=== PATIENT | male | born 1970 | race Caucasian/White ===

== ENCOUNTER 2020-04-13 15:11 | Inpatient (IN) ==
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
[2020-04-13] MEDS ORDERED: NORMAL SALINE 1,000 ML IV ONE (15:33)
[2020-04-13 15:53] LABS: Hematocrit 39.2 % (42.0-52.0); Hemoglobin 13.5 gm/dL (13.5-18.0); Mean Cell Volume 87.9 fl (78-100); Mean Corpuscular Hemoglobin 30.3 pg (27-31); Mean Corpuscular Hgb Conc 34.4 g/dl (32-36); Mean Platelet Volume 10.1 fl (8-11.3); Neutrophil # 6.2 K/mm3 (1.3-6.0); Neutrophil % 71.8 % (42-75.0); Platelet Count 189 K/mm3 (150-450); Red Blood Count 4.46 M/mm3 (4.7-6.0); Red Cell Distribution Width 12.7 % (11.5-14.0); White Blood Count 8.6 K/mm3 (4.0-10.5)
[2020-04-13 16:05] LABS: ALT 62 U/L (19-67); AST 46 U/L (0-48); Albumin * 3.5 gm/dl (3.4-5.0); Alkaline Phosphatase * 215 U/L (50-170); Anion Gap 19.1 mmol/L (6.8-13.8); BUN/Creatinine Ratio 9.3 (9.0-21.6); Bilirubin, Total 0.8 mg/dL (0.0-1.1); Blood Urea Nitrogen 9 mg/dL (6-23); Ca. Corrected For Albumin 9.7 mg/dL (8.4-10.2); Calcium * 9.6 mg/dL (7.9-10.9); Carbon Dioxide 22.1 mmol/L (24-32.6); Chloride 93 mmol/L (97-106); Glucose * 116 mg/dL (70-110); Potassium 4.2 mmol/L (3.4-4.6); Salicylate 7.8 mg/dL (2.8-20.0); Sodium 130 mmol/L (132-142); Total Protein 8.1 gm/dL (6.2-8.2)
[2020-04-13 16:10] LABS: Urine Bilirubin 1 mg/dl (NEGATIVE); Urine Ketone Negative (NEGATIVE); Urine Protein Negative (NEGATIVE); Urine Specific Gravity 1.025 SP.GR. (1.005-1.030); Urine Urobilinogen Normal (NORMAL); Urine pH 5.5 pH (5.0-7.0)
[2020-04-13 16:24] LABS: Cocaine Ur Negative (NEGATIVE); Urine Barbiturate Negative (NEGATIVE); Urine Benzodiazepines Negative (NEGATIVE); Urine Opiates Negative (NEGATIVE); Urine PCP Negative (NEGATIVE); Urine THC Negative (NEGATIVE)
[2020-04-13 16:30] LABS: Urine Appearance Slightly Cloudy (CLEAR); Urine Blood 5 /ul (NEGATIVE); Urine Color Dark Yellow; Urine Nitrite Positive (NEGATIVE); Urine RBC TRACE /hpf (0-5); Urine WBC 25-50 /hpf (0-5)
[2020-04-13 16:31] LABS: Urine Bacteria 4+; Urine Hyaline Cast 0-5 /LPF
[2020-04-13] MEDS ORDERED: cefTRIAXone SODIUM 1,000 MG/100 ML BAG IV ONE (16:47)
[2020-04-13] MEDS: NICOTINE 21 MG PATC TD SCH (18:49)
[2020-04-13] MEDS ORDERED: LORazepam 2 MG/ML DISP.SYRIN IV ONE (18:54)
[2020-04-13] MEDS: LORazepam 1 MG TABLET PO SCH (21:45)
[2020-04-14] MEDS: LORazepam 1 MG TABLET PO SCH ×4 (04:35→21:49)
[2020-04-14] MEDS: CIPROFLOXACIN HCL 500 MG TABLET PO SCH ×2 (13:47→20:03)
[2020-04-14] MEDS: LISINOPRIL 10 MG TABLET PO SCH (13:48)
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
[2020-04-14] MEDS: NICOTINE 21 MG PATC TD SCH (19:44)
[2020-04-14] MEDS: TOPIRAMATE 50 MG TABLET PO SCH (20:04)
--- NOTE | 2020-04-14 23:40 | PN ---
Subjective - Date and Time Seen Date: 04/14/20 Time: 10:30 Subjective Narrative: Reports weak and not feeling well. CIWA has remained low with scheduled ativan oral. Urine cx growing gram neg susan. No fever, chills, or vomiting. reports nausea. Objective - Vitals Vitals: Last Vital Signs Temp 36.4 C 04/14/20 16:02 Pulse 90 04/14/20 16:02 Resp 16 04/14/20 16:02 BP 153/87 H 04/14/20 16:02 Pulse Ox 100 04/14/20 16:02 - Exam Constitutional: Present: Alert, Oriented x3, Cooperative ENT Exam: Present: hearing grossly normal Respiratory: Present: lungs clear, normal breath sounds, no respiratory distress Cardiovascular/Chest: Present: regular rate, rhythm, no edema, no murmur Abdomen: Present: Normal bowel sounds, soft, nontender, nondistended Skin Exam: Present: normal color, warm/dry, no cyanosis Assessment/Plan Plan Narrative: UTI, culture pending. Treated with cipro. Less confused today. Patient is not interested in alcohol treatment. Confusion may be UTI related but alcohol is likely contributing. If continues to improve, will discharge tomorrow. - Problems/Diagnosis (1) Altered mental status Problem: Acute Qualifiers: Altered mental status type: disorientation Qualified Code(s): R41.0 - Disorientation, unspecified (2) Urinary tract infection Problem: Acute Qualifiers: Urinary tract infection type: acute cystitis Hematuria presence: without hematuria Qualified Code(s): N30.00 - Acute cystitis without hematuria (3) Alcohol withdrawal syndrome with complication Problem: Acute (4) Alcohol abuse Problem: Chronic
[2020-04-15] MEDS: LORazepam 1 MG TABLET PO SCH ×4 (03:03→21:12)
[2020-04-15] MEDS: CIPROFLOXACIN HCL 500 MG TABLET PO SCH ×2 (09:17→21:12)
[2020-04-15] MEDS: LISINOPRIL 10 MG TABLET PO SCH (09:17)
[2020-04-15] MEDS: TOPIRAMATE 50 MG TABLET PO SCH ×2 (09:18→21:12)
[2020-04-15] MEDS: NICOTINE 21 MG PATC TD SCH (19:03)
--- NOTE | 2020-04-15 22:58 | PN ---
Subjective - Date and Time Seen Date: 04/15/20 Time: 09:45 Subjective Narrative: Patient is confused and believes he is headed to work. Has no focal concerns. Patient is unsteady on his feet. No fever, chills, nausea, or vomiting. Objective - Vitals Vitals: Last Vital Signs Temp 36.3 C 04/15/20 22:09 Pulse 78 04/15/20 22:09 Resp 20 04/15/20 22:09 BP 139/81 04/15/20 22:09 Pulse Ox 100 04/15/20 22:09 - Exam Constitutional: Present: Alert, No distress. Absent: Oriented x3 Respiratory: Present: lungs clear, normal breath sounds Cardiovascular/Chest: Present: regular rate, rhythm, no edema Abdomen: Present: Normal bowel sounds, soft, nontender, nondistended Skin Exam: Present: normal color, warm/dry, no cyanosis Assessment/Plan Plan Narrative: Patient is delirious and confused and unsteady on his feet. He is unsafe for discharge. Symptoms secondary to Ecoli UTI vs alcohol withdrawal/damage. Continue antibiotics, continue ativan for CIWA. - Problems/Diagnosis (1) Altered mental status Problem: Acute Qualifiers: Altered mental status type: disorientation Qualified Code(s): R41.0 - Disorientation, unspecified (2) Urinary tract infection Problem: Acute Qualifiers: Urinary tract infection type: acute cystitis Hematuria presence: without hematuria Qualified Code(s): N30.00 - Acute cystitis without hematuria (3) Alcohol withdrawal syndrome with complication Problem: Acute (4) Alcohol abuse Problem: Chronic
[2020-04-16] MEDS: LORazepam 1 MG TABLET PO SCH ×3 (03:51→16:42)
[2020-04-16] MEDS: LISINOPRIL 10 MG TABLET PO SCH (09:28)
[2020-04-16] MEDS: TOPIRAMATE 50 MG TABLET PO SCH ×2 (09:28→20:17)
[2020-04-16] MEDS: CIPROFLOXACIN HCL 500 MG TABLET PO SCH ×2 (09:28→20:17)
--- NOTE | 2020-04-16 12:12 | PN ---
Subjective - Date and Time Seen Date: 04/16/20 Time: 11:50 Subjective Narrative: was admitted with delerium. 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 also has UTI, on an appropriate antibiotic. No fever and vitals stable. still confused and disoriented. unable to state he is in a hospital and is sure he is in [place]. CT scan of the brain ok. needs MRI to exclude problems besides Korsakoff's. may take days or weeks to clear up, if he ever does. we need to work on long-term care arrangements. I will add thiamine, b vitamins and magnesium today. I will decrease frequency of lorazepam dose. we will continue to monitor. Objective - Review of Systems Generalized/Overall Review: Reports: Malaise - poor historian due to poor mental function. EENTM: Reports: No Symptoms Reported Respiratory: Reports: No Symptoms Reported Cardiac: Reports: No Symptoms Reported Abdominal: Reports: No Symptoms Reported Genitourinary Symptoms: Reports: No Symptoms Reported Musculoskeletal Complaints: Reports: No Symptoms Reported Neurological: Reports: No Symptoms Reported Skin: Reports: No Symptoms Reported Endocrine: Reports: No Symptoms Reported Misc: All systems neg except as marked - Vitals Vitals: Last Vital Signs Temp 36.1 C 04/16/20 11:36 Pulse 79 04/16/20 11:36 Resp 12 04/16/20 11:36 BP 114/71 04/16/20 09:28 Pulse Ox 100 04/16/20 11:36 - Exam Constitutional: Present: Alert, Cooperative, Well developed, No distress, Looks Older than stated age. Absent: Oriented x3 ENT Exam: Present: normal ENT inspection, hearing grossly normal Neck: Present: normal inspection. Absent: lymphadenopathy (R), lymphadenopathy (L), thyromegaly Breasts: Present: Other - male Respiratory: Present: lungs clear, no respiratory distress Cardiovascular/Chest: Present: regular rate, rhythm, no edema, no gallop, no JVD, no murmur Abdomen: Present: Normal bowel sounds, soft, nontender, nondistended, no hepatospenomegaly, no masses /Rectal: Present: Exam deferred Extremity: Present: normal inspection, no pedal edema Skin Exam: Present: normal color, warm/dry, no cyanosis Lymphatic: Present: no adenopathy Neurologic: Present: abnormal gait, motor weakness. Absent: normal mood/affect Appearance: Present: appropriate appearance, impaired insight, impaired recent memory. Absent: appropriate insight Eye contact: Present: cooperative, good eye contact Thoughts: Absent: normal thought pattern Assessment/Plan - Problems/Diagnosis (1) Korsakoff psychosis Problem: Acute Narrative: will add thiamine, b vitamins and magnesium. MRI to exclude other possible causes. may take quite a well to clear, if he ever does. reasonable to start making long-term arrangements. (2) Urinary tract infection Problem: Acute Qualifiers: Urinary tract infection type: acute cystitis Hematuria presence: without hematuria Qualified Code(s): N30.00 - Acute cystitis without hematuria Narrative: E. coli. continue Cipro to which it is sensitive. (3) Alcohol abuse Problem: Chronic (4) Benign essential HTN Problem: Chronic (5) Tobacco abuse Problem: Chronic
[2020-04-16] MEDS: VITAMIN B COMP W-C 1 TAB TABLET PO SCH (12:31)
[2020-04-16] MEDS: THIAMINE HCL 100 MG TABLET PO SCH ×2 (12:31→20:18)
[2020-04-16] MEDS: MAGNESIUM OXIDE 400 MG TABLET PO SCH (12:31)
[2020-04-16] MEDS: MULTIVITAMINS 1 CAP CAPSULE PO SCH (12:33)
[2020-04-16] MEDS: ENOXAPARIN SODIUM 40 MG/0.4 ML SYRG SC SCH (16:42)
[2020-04-16] MEDS: NICOTINE 21 MG PATC TD SCH (20:16)
[2020-04-17] MEDS: LORazepam 1 MG TABLET PO SCH ×2 (00:03→08:27)
[2020-04-17] MEDS: MAGNESIUM OXIDE 400 MG TABLET PO SCH (08:27)
[2020-04-17] MEDS: MULTIVITAMINS 1 CAP CAPSULE PO SCH (08:27)
[2020-04-17] MEDS: VITAMIN B COMP W-C 1 TAB TABLET PO SCH (08:27)
[2020-04-17] MEDS: TOPIRAMATE 50 MG TABLET PO SCH ×2 (08:28→20:35)
[2020-04-17] MEDS: CIPROFLOXACIN HCL 500 MG TABLET PO SCH ×2 (08:28→20:36)
[2020-04-17] MEDS: LISINOPRIL 10 MG TABLET PO SCH (08:28)
[2020-04-17] MEDS: THIAMINE HCL 100 MG TABLET PO SCH ×2 (08:28→20:36)
--- NOTE | 2020-04-17 11:49 | PN ---
Subjective - Date and Time Seen Date: 04/17/20 Time: 11:30 Subjective Narrative: was admitted with delerium. 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 has UTI, continues on an appropriate antibiotic. No fever and vitals relatively stable. still confused and disoriented. unable to state he is in a hospital and is sure he is at his mother's house. CT scan of the brain ok. MRI brain ok. working diagnoses are Korsakoff's and uti. I will decrease frequency of lorazepam dose. we will continue to monitor. Objective - Review of Systems Generalized/Overall Review: Reports: Weakness EENTM: Reports: No Symptoms Reported Respiratory: Reports: No Symptoms Reported Cardiac: Reports: No Symptoms Reported Abdominal: Reports: No Symptoms Reported Genitourinary Symptoms: Reports: No Symptoms Reported Musculoskeletal Complaints: Reports: No Symptoms Reported Neurological: Reports: No Symptoms Reported Skin: Reports: No Symptoms Reported Endocrine: Reports: No Symptoms Reported Misc: All systems neg except as marked - poor historian because he is only oriented to person, i.e. confused - Vitals Vitals: Last Vital Signs Temp 36.4 C 04/17/20 07:08 Pulse 99 04/17/20 08:28 Resp 14 04/17/20 07:08 BP 130/86 04/17/20 08:28 Pulse Ox 100 04/17/20 07:08 - Exam Constitutional: Present: Alert, Cooperative, Well developed, No distress, Thin and frail, Looks Older than stated age. Absent: Oriented x3, Well nourished ENT Exam: Present: normal ENT inspection, hearing grossly normal Neck: Present: normal inspection. Absent: lymphadenopathy (R), lymphadenopathy (L), thyromegaly Breasts: Present: Other - male Respiratory: Present: lungs clear, no respiratory distress Cardiovascular/Chest: Present: regular rate, rhythm, no edema, no gallop, no JVD, no murmur Abdomen: Present: Normal bowel sounds, soft, nontender, nondistended, no masses /Rectal: Present: Exam deferred Extremity: Present: normal inspection, no pedal edema Skin Exam: Present: normal color, warm/dry, no cyanosis Lymphatic: Present: no adenopathy Neurologic: Present: alert, abnormal gait, other - no tremor at time of my exam today.. Absent: oriented x 3 Appearance: Present: appropriate appearance, impaired insight, impaired recent memory. Absent: appropriate insight Eye contact: Present: cooperative, good eye contact Thoughts: Absent: normal thought pattern Assessment/Plan - Problems/Diagnosis (1) Korsakoff psychosis Problem: Acute Narrative: decrease lorazepam. monitor. residential placement needs arranged. slightly abnormal chemistries on admit. will do BMP tomorrow. (2) Urinary tract infection Problem: Acute Qualifiers: Urinary tract infection type: acute cystitis Hematuria presence: without hematuria Qualified Code(s): N30.00 - Acute cystitis without hematuria Narrative: continue oral antibiotics. (3) Alcohol abuse Problem: Chronic (4) Benign essential HTN Problem: Chronic (5) Tobacco abuse Problem: Chronic
[2020-04-17] MEDS: ENOXAPARIN SODIUM 40 MG/0.4 ML SYRG SC SCH (15:17)
[2020-04-17] MEDS: NICOTINE 21 MG PATC TD SCH (20:03)
[2020-04-17] MEDS ORDERED: LORazepam 1 MG TABLET PO SCH (21:00)
[2020-04-18 06:32] LABS: Anion Gap 13.8 mmol/L (6.8-13.8); BUN/Creatinine Ratio 12.9 (9.0-21.6); Calcium * 9.6 mg/dL (7.9-10.9); Carbon Dioxide 24.4 mmol/L (24-32.6); Estimated Creat Clear 86.5; Potassium 5.2 mmol/L (3.4-4.6)
--- NOTE | 2020-04-18 06:44 | PN ---
Subjective - Date and Time Seen Date: 04/18/20 Time: 06:15 Subjective Narrative: was admitted with delerium. 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 neurology has been consulted, but won't be able to see him until Thursday. has UTI, continues on an appropriate antibiotic. No fever and vitals relatively stable. still confused and disoriented. working diagnoses are Korsakoff's and uti I will decrease frequency of lorazepam dose and order an EEG. we will continue to monitor. detention placement is the current plan. BMP results from this morning pending. Objective - Review of Systems Generalized/Overall Review: Reports: No Symptoms Reported - poor historian, due to brain dysfunction. EENTM: Reports: No Symptoms Reported Respiratory: Reports: No Symptoms Reported Cardiac: Reports: No Symptoms Reported Abdominal: Reports: No Symptoms Reported Genitourinary Symptoms: Reports: No Symptoms Reported Musculoskeletal Complaints: Reports: No Symptoms Reported Neurological: Reports: No Symptoms Reported Skin: Reports: No Symptoms Reported Endocrine: Reports: No Symptoms Reported Misc: All systems neg except as marked - Vitals Vitals: Last Vital Signs Temp 36.9 C 04/18/20 02:10 Pulse 91 04/18/20 02:10 Resp 18 04/18/20 02:10 BP 100/70 04/18/20 02:10 Pulse Ox 98 04/18/20 02:10 - Exam Constitutional: Present: Alert, Cooperative, Well developed, No distress. Absent: Oriented x3 ENT Exam: Present: normal ENT inspection, hearing grossly normal Neck: Present: normal inspection. Absent: lymphadenopathy (R), lymphadenopathy (L), thyromegaly Breasts: Present: Other - male Respiratory: Present: lungs clear, no respiratory distress Cardiovascular/Chest: Present: regular rate, rhythm, no edema, no gallop, no JVD, no murmur Abdomen: Present: Normal bowel sounds, soft, nontender, nondistended, no hepatospenomegaly, no masses /Rectal: Present: Exam deferred Extremity: Present: normal inspection, normal capillary refill Skin Exam: Present: normal color, warm/dry, no cyanosis Lymphatic: Present: no adenopathy Neurologic: Present: abnormal gait Appearance: Present: appropriate appearance, neat, impaired insight, impaired recent memory. Absent: appropriate insight Eye contact: Present: cooperative, good eye contact Thoughts: Absent: normal thought pattern Assessment/Plan - Problems/Diagnosis (1) Korsakoff psychosis Problem: Acute Narrative: BMP,EEG and neuro consult pending. Will continue to taper lorazepam. (2) Urinary tract infection Problem: Acute Qualifiers: Urinary tract infection type: acute cystitis Hematuria presence: without hematuria Qualified Code(s): N30.00 - Acute cystitis without hematuria Narrative: continue oral antibiotics. (3) Alcohol abuse Problem: Chronic (4) Benign essential HTN Problem: Chronic Narrative: BPs now on the low side. pulse in 80s and 90s. will decrease lisinopril dose and continue to monitor. (5) Tobacco abuse Problem: Chronic
--- NOTE | 2020-04-18 07:14 | PN ---
Progess Note - Interim Date: 04/18/20 Time: 07:12 Narrative: 04/18/20 07:12 When he was first admitted, he had alcohol withdrawal, therefore metabolic encephalopathy at the time of admission. That has resolved, leaving us with only Korsakoff's.
[2020-04-18] MEDS: THIAMINE HCL 100 MG TABLET PO SCH ×2 (08:25→20:18)
[2020-04-18] MEDS: MAGNESIUM OXIDE 400 MG TABLET PO SCH (08:25)
[2020-04-18] MEDS: LISINOPRIL 5 MG TABLET PO SCH (08:25)
[2020-04-18] MEDS: VITAMIN B COMP W-C 1 TAB TABLET PO SCH (08:25)
[2020-04-18] MEDS: CIPROFLOXACIN HCL 500 MG TABLET PO SCH ×2 (08:25→20:19)
[2020-04-18] MEDS: MULTIVITAMINS 1 CAP CAPSULE PO SCH (08:26)
[2020-04-18] MEDS: TOPIRAMATE 50 MG TABLET PO SCH ×2 (08:26→20:19)
[2020-04-18] MEDS ORDERED: LORazepam 2 MG/ML DISP.SYRIN IV PRN (13:06)
[2020-04-18] MEDS: ENOXAPARIN SODIUM 40 MG/0.4 ML SYRG SC SCH (14:08)
[2020-04-18] MEDS: NICOTINE 21 MG PATC TD SCH (19:13)
[2020-04-18] MEDS: LORazepam 1 MG TABLET PO SCH (20:18)
[2020-04-19] MEDS: VITAMIN B COMP W-C 1 TAB TABLET PO SCH (08:21)
[2020-04-19] MEDS: TOPIRAMATE 50 MG TABLET PO SCH ×2 (08:21→21:02)
[2020-04-19] MEDS: CIPROFLOXACIN HCL 500 MG TABLET PO SCH ×2 (08:21→21:01)
[2020-04-19] MEDS: THIAMINE HCL 100 MG TABLET PO SCH ×2 (08:21→21:02)
[2020-04-19] MEDS: MAGNESIUM OXIDE 400 MG TABLET PO SCH (08:22)
[2020-04-19] MEDS: LISINOPRIL 5 MG TABLET PO SCH (08:22)
[2020-04-19] MEDS: LORazepam 2 MG/ML DISP.SYRIN IM PRN ×2 (08:23→23:35)
[2020-04-19] MEDS: MULTIVITAMINS 1 CAP CAPSULE PO SCH (08:57)
--- NOTE | 2020-04-19 12:01 | PN ---
Subjective - Date and Time Seen Date: 04/19/20 Time: 11:45 Subjective Narrative: was admitted with delerium, most likely due to alcohol withdrawal, that is, toxic encephalopathy, now resolve. 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 neurology has been consulted, but won't be able to see him until tomorrw. has UTI, continues on an appropriate antibiotic. No fever and vitals relatively stable. BP is low even with lisinopril dose reduction. his BMP was ok, except for slightly high potassium. the lisinopril may be contributing to the hyperkalemia. still confused and disoriented. working diagnoses are Korsakoff's and uti I decreased the frequency of oral lorazepam to at bedtime only. he was quite restless, so he now also receives as needed parenteral lorazepam. his EEG shows diffuse slowing, consistent with Korsakoff's. we will continue to monitor. [facility] placement is the current plan. BMP tomorrow morning. stop lisinopril. Objective - Review of Systems Generalized/Overall Review: Reports: No Symptoms Reported - poor historian - Vitals Vitals: Last Vital Signs Temp 37.5 C 04/19/20 10:08 Pulse 111 H 04/19/20 10:08 Resp 16 04/19/20 10:08 BP 108/72 04/19/20 10:08 Pulse Ox 100 04/19/20 10:08 - Exam Constitutional: Present: Alert, Cooperative, No distress. Absent: Oriented x3 ENT Exam: Present: normal ENT inspection, hearing grossly normal Neck: Present: normal inspection. Absent: lymphadenopathy (R), lymphadenopathy (L), thyromegaly Breasts: Present: Other - male Respiratory: Present: lungs clear, no respiratory distress Cardiovascular/Chest: Present: regular rate, rhythm, no edema, no gallop, no JVD, no murmur Abdomen: Present: Normal bowel sounds, soft, nontender, nondistended, no hepatospenomegaly, no masses /Rectal: Present: Exam deferred Extremity: Present: non-tender, normal inspection Skin Exam: Present: normal color, warm/dry, no cyanosis Lymphatic: Present: no adenopathy Neurologic: Present: motor weakness. Absent: oriented x 3 Appearance: Present: appropriate appearance, neat. Absent: appropriate insight Eye contact: Present: cooperative, good eye contact. Absent: normal speech Thoughts: Absent: normal thought pattern Assessment/Plan - Problems/Diagnosis (1) Korsakoff psychosis Problem: Acute (2) Urinary tract infection Problem: Acute Qualifiers: Urinary tract infection type: acute cystitis Hematuria presence: without hematuria Qualified Code(s): N30.00 - Acute cystitis without hematuria (3) Alcohol abuse Problem: Chronic (4) Benign essential HTN Problem: Chronic Narrative: bp low. will stop lisinopril and check BMP tomorrow. (5) Tobacco abuse Problem: Chronic (6) Metabolic encephalopathy Problem: Resolved Narrative: due to acute ethanol withdrawal.
[2020-04-19] MEDS: ENOXAPARIN SODIUM 40 MG/0.4 ML SYRG SC SCH (15:00)
[2020-04-19] MEDS: NICOTINE 21 MG PATC TD SCH (19:56)
[2020-04-19] MEDS: LORazepam 1 MG TABLET PO SCH (21:01)
[2020-04-20 07:01] LABS: Anion Gap 13.9 mmol/L (6.8-13.8); BUN/Creatinine Ratio 19.4 (9.0-21.6); Carbon Dioxide 22.2 mmol/L (24-32.6); Potassium 4.1 mmol/L (3.4-4.6)
--- NOTE | 2020-04-20 07:27 | PN ---
Subjective - Date and Time Seen Date: 04/20/20 Time: 06:55 Subjective Narrative: was admitted with delerium, most likely due to alcohol withdrawal, that is, toxic encephalopathy, now resolved. 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 neurology has been consulted, and is supposed to see her today. has UTI, continues on an appropriate antibiotic. total duration of antibiotic treatment will be 7 days.. No fever and vitals relatively stable. BP is mostly low even with lisinopril dis continuation. his elevated potassium has normalized this morning. still confused and disoriented: essentially no change in mental status. working diagnoses are Korsakoff's and uti receives scheduled lorazepam at bedtime and as needed IM for restlessness. we will continue to monitor. [facility] placement remains the current plan. Objective - Review of Systems Generalized/Overall Review: Reports: No Symptoms Reported - poor historian - Vitals Vitals: Last Vital Signs Temp 37.1 C 04/20/20 07:09 Pulse 90 04/20/20 07:09 Resp 16 04/20/20 07:09 BP 113/73 04/20/20 07:09 Pulse Ox 100 04/20/20 07:09 - Abnormal Lab Findings Abnormal Lab Findings: Abnormal Lab Results 04/20/20 Range/Units 06:25 Chloride 107 H (97-106) mmol/L Carbon Dioxide 22.2 L (24-32.6) mmol/L Anion Gap 13.9 H (6.8-13.8) mmol/L - Exam Constitutional: Present: Alert, Cooperative, Well developed, No distress, Elderly - looks older than age. Absent: Oriented x3 ENT Exam: Present: normal ENT inspection, hearing grossly normal Neck: Present: normal inspection. Absent: lymphadenopathy (R), lymphadenopathy (L), thyromegaly Breasts: Present: Other - male Respiratory: Present: lungs clear, no respiratory distress Cardiovascular/Chest: Present: regular rate, rhythm, no edema, no gallop, no JVD, no murmur Abdomen: Present: Normal bowel sounds, soft, nontender, nondistended, no hepatospenomegaly, no masses Extremity: Present: normal inspection, no pedal edema Skin Exam: Present: normal color, warm/dry, no cyanosis Lymphatic: Present: no adenopathy Neurologic: Present: other - unsteady at times with ambulation. confused. Appearance: Present: appropriate appearance, neat, impaired recent memory, impaired remote memory. Absent: appropriate insight Eye contact: Present: cooperative, good eye contact. Absent: normal speech Thoughts: Absent: normal thought pattern Assessment/Plan - Problems/Diagnosis (1) Korsakoff psychosis Problem: Acute Narrative: plan is to wait for neurology consultation today and arrange [facility] placement. (2) Urinary tract infection Problem: Acute Qualifiers: Urinary tract infection type: acute cystitis Hematuria presence: without hematuria Qualified Code(s): N30.00 - Acute cystitis without hematuria (3) Alcohol abuse Problem: Chronic (4) Benign essential HTN Problem: Chronic (5) Tobacco abuse Problem: Chronic (6) Metabolic encephalopathy Problem: Resolved
[2020-04-20] MEDS: VITAMIN B COMP W-C 1 TAB TABLET PO SCH (08:30)
[2020-04-20] MEDS: MAGNESIUM OXIDE 400 MG TABLET PO SCH (08:30)
[2020-04-20] MEDS: TOPIRAMATE 50 MG TABLET PO SCH ×2 (08:30→21:13)
[2020-04-20] MEDS: THIAMINE HCL 100 MG TABLET PO SCH ×2 (08:31→21:13)
[2020-04-20] MEDS: MULTIVITAMINS 1 CAP CAPSULE PO SCH (08:31)
[2020-04-20] MEDS: CIPROFLOXACIN HCL 500 MG TABLET PO SCH ×2 (08:31→21:13)
--- NOTE | 2020-04-20 13:07 | PN ---
Progess Note - Interim Date: 04/20/20 Time: 13:05 Narrative: 04/20/20 13:[address] Young. agrees with diagnosis. thinks he is incompetent to make his own decisions and needs 24 hour care, with which I agree. he recommended a VCRL which I will order. he suggested a PT evaluation which I will order. he recommended a neurocog eval by psych which I will work on Thursday.
[2020-04-20] MEDS: CYANOCOBALAMIN 1,000 MCG TABLET PO SCH (13:29)
[2020-04-20] MEDS: FOLIC ACID 1 MG TABLET PO SCH (13:29)
[2020-04-20] MEDS: ENOXAPARIN SODIUM 40 MG/0.4 ML SYRG SC SCH (15:49)
[2020-04-20] MEDS: NICOTINE 21 MG PATC TD SCH (19:11)
[2020-04-20] MEDS: LORazepam 1 MG TABLET PO SCH (21:12)
[2020-04-21] MEDS: LORazepam 2 MG/ML DISP.SYRIN IM PRN (01:00)
--- NOTE | 2020-04-21 11:09 | PN ---
Subjective - Date and Time Seen Date: 04/21/20 Time: 09:45 Subjective Narrative: Patient was agitated overnight, and fell asleep around 6 am. He is not aware of his surroundings, and was wandering yesterday afternoon. He spent some time at the nurses station, to keep him from wandering. Objective Objective Narrative: Unable to contribute, but confusion and agitation per nursing staff. - Vitals Vitals: Last Vital Signs Temp 37.2 C 04/21/20 02:00 Pulse 102 H 04/21/20 02:00 Resp 18 04/21/20 02:00 BP 145/86 H 04/21/20 02:00 Pulse Ox 100 04/21/20 02:00 - Exam Exam Narrative: With his agitation, he was not awoken for exam. Patient examined while sleeping. I did see him yesterday evening, around 8:00, at the nurses station, and he had no acute observable physical findings. Constitutional: Present: No distress Respiratory: Present: lungs clear, normal breath sounds, no respiratory distress Assessment/Plan Plan Narrative: History obtained from chart review and patient's PCP. He was examined by neurology yesterday, who also agrees with Korsakoff's diagnosis. Per his chart, he has a history of alcohol abuse. Will continue current meds, including thiamine. Negative UDS on admission. Mr. Cano is unable to make his medical decisions, and case management is working on placement. A cognitive psychiatric evaluation was recommended, and his PCP reports planning on working on that next week. - Problems/Diagnosis (1) Korsakoff psychosis Problem: Acute (2) Urinary tract infection Problem: Resolved Qualifiers: Urinary tract infection type: acute cystitis Hematuria presence: without hematuria Qualified Code(s): N30.00 - Acute cystitis without hematuria Narrative: He completed a 7-day course of Cipro for an E. coli urinary tract infection.
[2020-04-21] MEDS: MAGNESIUM OXIDE 400 MG TABLET PO SCH (12:01)
[2020-04-21] MEDS: FOLIC ACID 1 MG TABLET PO SCH (12:02)
[2020-04-21] MEDS: VITAMIN B COMP W-C 1 TAB TABLET PO SCH (12:04)
[2020-04-21] MEDS: CYANOCOBALAMIN 1,000 MCG TABLET PO SCH (12:04)
[2020-04-21] MEDS: MULTIVITAMINS 1 CAP CAPSULE PO SCH (12:04)
[2020-04-21] MEDS: TOPIRAMATE 50 MG TABLET PO SCH ×2 (12:04→20:52)
[2020-04-21] MEDS: THIAMINE HCL 100 MG TABLET PO SCH ×2 (12:21→20:52)
[2020-04-21] MEDS: ENOXAPARIN SODIUM 40 MG/0.4 ML SYRG SC SCH (14:30)
[2020-04-21] MEDS: NICOTINE 21 MG PATC TD SCH (18:58)
[2020-04-21] MEDS: LORazepam 1 MG TABLET PO SCH (20:56)
[2020-04-22] MEDS: LORazepam 1 MG TABLET PO PRN ×2 (02:05→14:28)
--- NOTE | 2020-04-22 10:50 | PN ---
Subjective - Date and Time Seen Date: 04/22/20 Time: 09:45 Subjective Narrative: He continues to exhibit signs of paranoia, stating he has been kidnapped or being poisoned. Some of his pills were found sitting next to the computer in his room yesterday. Objective - Review of Systems Generalized/Overall Review: Reports: No Symptoms Reported Respiratory: Reports: No Symptoms Reported Abdominal: Reports: No Symptoms Reported - Vitals Vitals: Last Vital Signs Temp 36.6 C 04/22/20 03:00 Pulse 90 04/22/20 03:00 Resp 18 04/22/20 03:00 BP 169/96 H 04/22/20 03:00 Pulse Ox 100 04/22/20 03:00 - Exam Constitutional: Present: Alert, Cooperative, No distress Respiratory: Present: lungs clear, normal breath sounds Cardiovascular/Chest: Present: regular rate, rhythm Abdomen: Present: soft Extremity: Absent: lower extremity edema Appearance: Present: impaired insight, impaired recent memory Eye contact: Present: normal speech Assessment/Plan Plan Narrative: He was examined by neurology on 04/20/20, who also agrees with Korsakoff's diagnosis. Per his chart, he has a history of alcohol abuse. Will continue current meds, including thiamine. Negative UDS on admission. Mr. Cano is unable to make his medical decisions, and case management is working on placement. A cognitive psychiatric evaluation was recommended, and his PCP reports planning on working on that this week. He is agitated at times, but po ativan seems to be managing this. Will need to ensure to takes his meds. He completed a course of cipro for e coli UTI. - Problems/Diagnosis (1) Korsakoff psychosis Problem: Acute (2) Urinary tract infection Problem: Resolved Qualifiers: Urinary tract infection type: acute cystitis Hematuria presence: without hematuria Qualified Code(s): N30.00 - Acute cystitis without hematuria
[2020-04-22] MEDS: MAGNESIUM OXIDE 400 MG TABLET PO SCH (11:01)
[2020-04-22] MEDS: FOLIC ACID 1 MG TABLET PO SCH (11:01)
[2020-04-22] MEDS: THIAMINE HCL 100 MG TABLET PO SCH ×2 (11:02→20:29)
[2020-04-22] MEDS: CYANOCOBALAMIN 1,000 MCG TABLET PO SCH (11:02)
[2020-04-22] MEDS: TOPIRAMATE 50 MG TABLET PO SCH ×2 (11:02→20:29)
[2020-04-22] MEDS: MULTIVITAMINS 1 CAP CAPSULE PO SCH (11:02)
[2020-04-22] MEDS: VITAMIN B COMP W-C 1 TAB TABLET PO SCH (11:02)
[2020-04-22] MEDS: ENOXAPARIN SODIUM 40 MG/0.4 ML SYRG SC SCH (14:30)
[2020-04-22] MEDS: NICOTINE 21 MG PATC TD SCH (18:45)
[2020-04-22] MEDS: LORazepam 1 MG TABLET PO SCH (20:29)
[2020-04-23] MEDS: LORazepam 1 MG TABLET PO PRN ×2 (00:58→13:35)
--- NOTE | 2020-04-23 06:46 | PN ---
Subjective - Date and Time Seen Date: 04/23/20 Time: 06:25 Subjective Narrative: Diagnosis is Korsakoff's. Per his chart, he has a history of alcohol abuse. He is not competent to make medical decisions. Still working on placement. I will work on obtaining a neuropsychiatric consult today. Status is about the same. He remains disoriented. Objective - Review of Systems Generalized/Overall Review: Reports: No Symptoms Reported - poor historian due to confusion EENTM: Reports: No Symptoms Reported Respiratory: Reports: No Symptoms Reported Cardiac: Reports: No Symptoms Reported Abdominal: Reports: No Symptoms Reported Genitourinary Symptoms: Reports: No Symptoms Reported Musculoskeletal Complaints: Reports: No Symptoms Reported Neurological: Reports: No Symptoms Reported Skin: Reports: No Symptoms Reported Endocrine: Reports: No Symptoms Reported Misc: All systems neg except as marked - Vitals Vitals: Last Vital Signs Temp 36.2 C 04/22/20 21:56 Pulse 73 04/22/20 21:56 Resp 12 04/22/20 21:56 BP 118/61 04/22/20 21:56 Pulse Ox 99 04/22/20 21:56 - Exam Constitutional: Present: Alert, Cooperative, Well developed, No distress. Absent: Oriented x3 ENT Exam: Present: normal ENT inspection, hearing grossly normal Neck: Present: normal inspection Breasts: Present: Other - male Respiratory: Present: lungs clear, no respiratory distress Cardiovascular/Chest: Present: regular rate, rhythm, no edema, no gallop, no JVD, no murmur Abdomen: Present: Normal bowel sounds, soft, nontender, nondistended, no hepatospenomegaly, no masses /Rectal: Present: Exam deferred Extremity: Present: normal inspection, no pedal edema Skin Exam: Present: normal color, warm/dry, no cyanosis Lymphatic: Present: no adenopathy Neurologic: Present: alert. Absent: normal mood/affect, oriented x 3 Appearance: Present: appropriate appearance. Absent: appropriate insight, impaired recent memory Eye contact: Present: cooperative. Absent: normal speech Thoughts: Absent: normal thought pattern Assessment/Plan - Problems/Diagnosis (1) Korsakoff psychosis Problem: Acute Narrative: discharge planners are working on placement. according to Dr. Young's recommendation on Thursday, I ordered a neuropsychiatric consult this morning. (2) Urinary tract infection Problem: Resolved Qualifiers: Urinary tract infection type: acute cystitis Hematuria presence: without hematuria Qualified Code(s): N30.00 - Acute cystitis without hematuria (3) Alcohol abuse Problem: Chronic (4) Benign essential HTN Problem: Chronic (5) Tobacco abuse Problem: Chronic (6) Metabolic encephalopathy Problem: Resolved
[2020-04-23] MEDS: MAGNESIUM OXIDE 400 MG TABLET PO SCH (08:11)
[2020-04-23] MEDS: FOLIC ACID 1 MG TABLET PO SCH (08:11)
[2020-04-23] MEDS: THIAMINE HCL 100 MG TABLET PO SCH ×2 (08:12→20:30)
[2020-04-23] MEDS: MULTIVITAMINS 1 CAP CAPSULE PO SCH (08:12)
[2020-04-23] MEDS: CYANOCOBALAMIN 1,000 MCG TABLET PO SCH (08:12)
[2020-04-23] MEDS: TOPIRAMATE 50 MG TABLET PO SCH ×2 (08:12→20:29)
[2020-04-23] MEDS: VITAMIN B COMP W-C 1 TAB TABLET PO SCH (08:12)
[2020-04-23] MEDS: ENOXAPARIN SODIUM 40 MG/0.4 ML SYRG SC SCH (15:23)
--- NOTE | 2020-04-23 16:16 | CONS ---
- Reason for consultation (1) Korsakoff psychosis Date of Service: 04/23/20 HPI - General Date of Service: 04/23/20 Source: patient, RN/MD, RN notes reviewed - History of Present Illness Allergies/Adverse Reactions: Allergies No Known Allergies Allergy (Verified 04/13/20 15:23) Home Medications: Home Medications Medication Instructions Recorded Last Taken vitamin B complex 1 tab PO DAILY 03/21/19 Unknown naltrexone 50 mg tablet 50 mg PO HS #30 tab 03/06/20 Unknown lisinopril 10 mg tablet 10 mg PO DAILY #30 tab 04/10/20 Unknown topiramate 50 mg tablet 50 mg PO BID #60 tab 04/10/20 Unknown Medications - Medications Current Medications: Current Medications Cyanocobalamin (Vitamin B-12) 1,000 mcg PO DAILY ERAN Stop: 05/20/20 13:16 Last Admin: 04/23/20 08:12 Dose: 1,000 mcg Documented by: Enoxaparin Sodium (Lovenox) 40 mg SC Q24H ERAN Stop: 05/16/20 14:46 Last Admin: 04/23/20 15:23 Dose: 40 mg Documented by: Folic Acid (Folic Acid) 1 mg PO DAILY ERAN Stop: 05/20/20 13:16 Last Admin: 04/23/20 08:11 Dose: 1 mg Documented by: Lorazepam (Ativan) 1 mg PO HS ERAN Stop: 05/18/20 21:01 Last Admin: 04/22/20 20:29 Dose: 1 mg Documented by: Lorazepam (Ativan) 1 mg PO Q6HRT PRN PRN Reason: agitation Stop: 05/21/20 15:14 Last Admin: 04/23/20 13:35 Dose: 1 mg Documented by: Magnesium Oxide (Mag-Ox 400) 400 mg PO DAILY ERAN Stop: 05/16/20 12:01 Last Admin: 04/23/20 08:11 Dose: 400 mg Documented by: Multivitamins/Folic Acid (Multivitamin Fabiola) 1 cap PO DAILY ERAN Stop: 05/16/20 12:16 Last Admin: 04/23/20 08:12 Dose: 1 cap Documented by: Nicotine (Nicoderm) 21 mg TD Q24H ERAN Stop: 05/13/20 19:01 Last Admin: 04/22/20 18:45 Dose: 21 mg Documented by: Thiamine HCl (Vitamin B-1) 100 mg PO BID ERAN Stop: 05/16/20 12:01 Last Admin: 04/23/20 08:12 Dose: 100 mg Documented by: Topiramate (Topamax) 50 mg PO BID ERAN Stop: 05/14/20 21:01 Last Admin: 04/23/20 08:12 Dose: 50 mg Documented by: Vitamin B Complex/Vitamin C (Vitabee W/C) 1 tab PO DAILY ERAN Stop: 05/16/20 12:01 Last Admin: 04/23/20 08:12 Dose: 1 tab Documented by: Review of Systems - Review of Systems Neurological: Present: Tremors. Absent: Anxiety, Depressed Physical Examination - Exam Narrative: Patient is A/O x2. He is disoriented to time, he knows his name and that he is in [facility], but not aware that he is in the hospital. 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 States that he has not been drinking heavily prior to hospitalization but does admit to regular alcohol use. He states that he lives with his 20 year old daughter. Has told staff that he lives with his mother and is still in school. He states that he had not been depressed or anxious. States that her sleeps well normally. He states that he takes the medications prescribed by PCP for his alcohol dependence. States that it is just a habit and downplays the severity of his alcoholism. States that he often wonders why some people do well in life while others do not. He states that he feels like he is in the middle of these people and wants to just smash them. Unsure what is meant by this as he is rambling a bit. He does state that he has noticed the past few months that he can't remember what he did the day before, even when he claims he has not consumed any alcohol. He states that he stopped drinking 3 days ago because of his poor memory. I agree with the neurologist's findings and I feel that his symptoms are related to Korsakoff's psychosis and he is need of alf care placement in the immediate future and possibly alcohol addiction treatment. Vital Signs: Vital Signs - Last Taken Temp 37.1 C 04/23/20 15:02 Pulse 93 04/23/20 15:02 Resp 16 04/23/20 15:02 BP 146/83 H 04/23/20 15:02 Pulse Ox 100 04/23/20 15:02 O2 Oxygen Delivery Method Room Air Constitutional: Present: Alert, Cooperative, Thin and frail, Looks Older than stated age. Absent: Oriented x3 Appearance: Present: impaired insight, impaired recent memory, impaired remote memory Eye contact: Present: cooperative, normal speech, avoids eye contact Thoughts: Present: no apparent hallucination, delusions - Assessments/Findings (1) Korsakoff psychosis Problem: Acute
[2020-04-23] MEDS: NICOTINE 21 MG PATC TD SCH (18:31)
[2020-04-23] MEDS: LORazepam 1 MG TABLET PO SCH (20:29)
[2020-04-24] MEDS: LORazepam 1 MG TABLET PO PRN ×3 (03:42→22:00)
[2020-04-24] MEDS: CYANOCOBALAMIN 1,000 MCG TABLET PO SCH (08:03)
[2020-04-24] MEDS: FOLIC ACID 1 MG TABLET PO SCH (08:03)
[2020-04-24] MEDS: VITAMIN B COMP W-C 1 TAB TABLET PO SCH (08:03)
[2020-04-24] MEDS: THIAMINE HCL 100 MG TABLET PO SCH ×2 (08:03→20:07)
[2020-04-24] MEDS: MULTIVITAMINS 1 CAP CAPSULE PO SCH (08:03)
[2020-04-24] MEDS: MAGNESIUM OXIDE 400 MG TABLET PO SCH (08:03)
[2020-04-24] MEDS: TOPIRAMATE 50 MG TABLET PO SCH ×2 (08:04→20:04)
[2020-04-24] MEDS: ENOXAPARIN SODIUM 40 MG/0.4 ML SYRG SC SCH (16:16)
--- NOTE | 2020-04-24 16:18 | PN ---
Subjective - Date and Time Seen Date: 04/24/20 Time: 16:16 Subjective Narrative: no change. all three providers who have seen him this admission agree he has Korsakoff's psychosis and is incompetent to make his own decisions. at issue is placement. he is unable to be on his own. Objective - Review of Systems Generalized/Overall Review: Reports: No Symptoms Reported - poor historian - Vitals Vitals: Last Vital Signs Temp 36.7 C 04/24/20 14:33 Pulse 119 H 04/24/20 14:33 Resp 18 04/24/20 14:33 BP 148/90 H 04/24/20 14:33 Pulse Ox 100 04/24/20 14:33 - Exam Constitutional: Present: Other - no change in all. Assessment/Plan - Problems/Diagnosis (1) Korsakoff psychosis Problem: Acute Narrative: incompetent. needs placement. (2) Urinary tract infection Problem: Resolved Qualifiers: Urinary tract infection type: acute cystitis Hematuria presence: without hematuria Qualified Code(s): N30.00 - Acute cystitis without hematuria (3) Alcohol abuse Problem: Chronic (4) Benign essential HTN Problem: Chronic (5) Tobacco abuse Problem: Chronic (6) Metabolic encephalopathy Problem: Resolved
[2020-04-24] MEDS: LORazepam 1 MG TABLET PO SCH (20:03)
[2020-04-24] MEDS: NICOTINE 21 MG PATC TD SCH (20:03)
[2020-04-25] MEDS: VITAMIN B COMP W-C 1 TAB TABLET PO SCH (08:24)
[2020-04-25] MEDS: FOLIC ACID 1 MG TABLET PO SCH (08:25)
[2020-04-25] MEDS: CYANOCOBALAMIN 1,000 MCG TABLET PO SCH (08:25)
[2020-04-25] MEDS: TOPIRAMATE 50 MG TABLET PO SCH ×2 (08:25→22:54)
[2020-04-25] MEDS: MULTIVITAMINS 1 CAP CAPSULE PO SCH (08:25)
[2020-04-25] MEDS: MAGNESIUM OXIDE 400 MG TABLET PO SCH (08:25)
[2020-04-25] MEDS: LORazepam 1 MG TABLET PO PRN ×2 (08:26→15:09)
[2020-04-25] MEDS: THIAMINE HCL 100 MG TABLET PO SCH ×2 (08:26→22:53)
--- NOTE | 2020-04-25 13:19 | PN ---
Subjective - Date and Time Seen Date: 04/25/20 Time: 12:30 Subjective Narrative: An assistant prosecuting attorney contact my office this morning asking for letter documenting Isaías's competency, so such a letter was provided, because Isaías's mother is trying to get him into a alf. Isaías is the same clinically, and is still in the hospital because he is not safe to be discharged on his own and at the present time we have no place to send him. vitals are stable. Objective - Review of Systems Generalized/Overall Review: Reports: No Symptoms Reported - remains disoriented and a poor historian. - Vitals Vitals: Last Vital Signs Temp 36.6 C 04/25/20 07:25 Pulse 86 04/25/20 07:25 Resp 16 04/25/20 07:25 BP 126/71 04/25/20 07:25 Pulse Ox 100 04/25/20 07:25 - Abnormal Lab Findings Abnormal Lab Findings: Abnormal Lab Results 04/20/20 Range/Units 06:25 VDRL Reactive H - Exam Exam Narrative: there has been no real change in his exam since yesterday. Assessment/Plan - Problems/Diagnosis (1) Korsakoff psychosis Problem: Acute Narrative: waiting for placement for skilled nursing care. (2) Urinary tract infection Problem: Resolved Qualifiers: Urinary tract infection type: acute cystitis Hematuria presence: without hematuria Qualified Code(s): N30.00 - Acute cystitis without hematuria (3) Alcohol abuse Problem: Chronic (4) Benign essential HTN Problem: Chronic (5) Tobacco abuse Problem: Chronic (6) Metabolic encephalopathy Problem: Resolved
[2020-04-25] MEDS: ENOXAPARIN SODIUM 40 MG/0.4 ML SYRG SC SCH (14:32)
[2020-04-25] MEDS: LORazepam 1 MG TABLET PO SCH (22:53)
[2020-04-25] MEDS: NICOTINE 21 MG PATC TD SCH (22:53)
--- NOTE | 2020-04-26 06:46 | PN ---
Subjective - Date and Time Seen Date: 04/26/20 Time: 06:20 Subjective Narrative: no change. waiting for placement. Objective - Review of Systems Generalized/Overall Review: Reports: No Symptoms Reported - poor historian. no change. confused. vitals stable. - Vitals Vitals: Last Vital Signs Temp 36.3 C 04/26/20 06:26 Pulse 86 04/26/20 06:26 Resp 16 04/26/20 06:26 BP 135/84 04/26/20 06:26 Pulse Ox 96 04/26/20 06:26 - Exam Constitutional: Present: Alert - no change in exam. Assessment/Plan - Problems/Diagnosis (1) Korsakoff psychosis Problem: Acute Narrative: waiting for placement in senior living care. (2) Urinary tract infection Problem: Resolved Qualifiers: Urinary tract infection type: acute cystitis Hematuria presence: without hematuria Qualified Code(s): N30.00 - Acute cystitis without hematuria (3) Alcohol abuse Problem: Chronic (4) Benign essential HTN Problem: Chronic (5) Tobacco abuse Problem: Chronic (6) Metabolic encephalopathy Problem: Resolved
--- NOTE | 2020-04-26 07:16 | PN ---
Progess Note - Interim Date: 04/26/20 Time: 07:15 Narrative: 04/26/20 07:15 positive VDRL. history totally unhelpful. will check treponemal antibodies and HIV screen.
[2020-04-26] MEDS: CYANOCOBALAMIN 1,000 MCG TABLET PO SCH (08:05)
[2020-04-26] MEDS: FOLIC ACID 1 MG TABLET PO SCH (08:05)
[2020-04-26] MEDS: VITAMIN B COMP W-C 1 TAB TABLET PO SCH (08:05)
[2020-04-26] MEDS: MAGNESIUM OXIDE 400 MG TABLET PO SCH (08:05)
[2020-04-26] MEDS: TOPIRAMATE 50 MG TABLET PO SCH ×2 (08:05→20:47)
[2020-04-26] MEDS: MULTIVITAMINS 1 CAP CAPSULE PO SCH (08:05)
[2020-04-26] MEDS: THIAMINE HCL 100 MG TABLET PO SCH ×2 (08:05→20:46)
[2020-04-26] MEDS: LORazepam 1 MG TABLET PO PRN (12:10)
[2020-04-26] MEDS: ENOXAPARIN SODIUM 40 MG/0.4 ML SYRG SC SCH (14:01)
[2020-04-26] MEDS: NICOTINE 21 MG PATC TD SCH (18:38)
[2020-04-26] MEDS: LORazepam 1 MG TABLET PO SCH (20:46)
--- NOTE | 2020-04-27 06:38 | PN ---
Subjective - Date and Time Seen Date: 04/27/20 Time: 06:10 Subjective Narrative: no change. Objective - Review of Systems Generalized/Overall Review: Reports: No Symptoms Reported - but poor historian - Vitals Vitals: Last Vital Signs Temp 36.3 C 04/27/20 02:35 Pulse 99 04/27/20 02:35 Resp 16 04/27/20 02:35 BP 153/90 H 04/27/20 02:35 Pulse Ox 99 04/27/20 02:35 - Exam Constitutional: Present: Alert, Cooperative, Well developed, No distress. Absent: Oriented x3 ENT Exam: Present: normal ENT inspection, hearing grossly normal Neck: Present: normal inspection Breasts: Present: Exam deferred Respiratory: Present: lungs clear. Absent: respiratory distress Cardiovascular/Chest: Present: regular rate, rhythm, no edema, no gallop, no JVD, no murmur Abdomen: Present: Normal bowel sounds, soft, nontender, nondistended, no hepatospenomegaly, no masses /Rectal: Present: Exam deferred Extremity: Present: normal inspection Skin Exam: Present: normal color, warm/dry, no cyanosis Neurologic: Absent: normal mood/affect, oriented x 3 Appearance: Present: appropriate appearance, neat, impaired insight, impaired recent memory. Absent: appropriate insight Eye contact: Present: cooperative. Absent: good eye contact, normal speech Thoughts: Absent: normal thought pattern Assessment/Plan - Problems/Diagnosis (1) VDRL positive Problem: Acute Narrative: VDRL positive. Have ordered treponemal antibodies and HIV. (2) Korsakoff psychosis Problem: Acute Narrative: waiting for placement. (3) Urinary tract infection Problem: Resolved Qualifiers: Urinary tract infection type: acute cystitis Hematuria presence: without hematuria Qualified Code(s): N30.00 - Acute cystitis without hematuria (4) Alcohol abuse Problem: Chronic (5) Benign essential HTN Problem: Chronic (6) Tobacco abuse Problem: Chronic (7) Metabolic encephalopathy Problem: Resolved
[2020-04-27] MEDS: ATENOLOL 25 MG TABLET PO SCH (08:16)
[2020-04-27] MEDS: TOPIRAMATE 50 MG TABLET PO SCH ×2 (08:17→20:28)
[2020-04-27] MEDS: VITAMIN B COMP W-C 1 TAB TABLET PO SCH (08:17)
[2020-04-27] MEDS: CYANOCOBALAMIN 1,000 MCG TABLET PO SCH (08:17)
[2020-04-27] MEDS: THIAMINE HCL 100 MG TABLET PO SCH ×2 (08:17→20:29)
[2020-04-27] MEDS: MULTIVITAMINS 1 CAP CAPSULE PO SCH (08:18)
[2020-04-27] MEDS: LORazepam 1 MG TABLET PO PRN ×3 (09:42→22:31)
[2020-04-27] MEDS: MAGNESIUM OXIDE 400 MG TABLET PO SCH (10:11)
[2020-04-27] MEDS: FOLIC ACID 1 MG TABLET PO SCH (10:11)
[2020-04-27] MEDS: ENOXAPARIN SODIUM 40 MG/0.4 ML SYRG SC SCH (15:10)
[2020-04-27] MEDS: NICOTINE 21 MG PATC TD SCH (18:44)
[2020-04-27] MEDS: LORazepam 1 MG TABLET PO SCH (20:27)
[2020-04-28] MEDS: LORazepam 1 MG TABLET PO PRN ×3 (08:23→23:13)
[2020-04-28] MEDS: THIAMINE HCL 100 MG TABLET PO SCH ×2 (08:23→20:12)
[2020-04-28] MEDS: MULTIVITAMINS 1 CAP CAPSULE PO SCH (08:23)
[2020-04-28] MEDS: MAGNESIUM OXIDE 400 MG TABLET PO SCH (08:23)
[2020-04-28] MEDS: ATENOLOL 25 MG TABLET PO SCH (08:23)
[2020-04-28] MEDS: VITAMIN B COMP W-C 1 TAB TABLET PO SCH (08:23)
[2020-04-28] MEDS: FOLIC ACID 1 MG TABLET PO SCH (08:23)
[2020-04-28] MEDS: CYANOCOBALAMIN 1,000 MCG TABLET PO SCH (08:23)
[2020-04-28] MEDS: TOPIRAMATE 50 MG TABLET PO SCH ×2 (08:24→20:12)
--- NOTE | 2020-04-28 10:02 | PN ---
Subjective - Date and Time Seen Date: 04/28/20 Time: 10:02 Subjective Narrative: Patient is stable, currently resting in bed. No concerns or complaints. Vital signs are stable. No recent blood work with the last week, no reason to check some today. Awaiting placement. Objective - Review of Systems Generalized/Overall Review: Reports: No Symptoms Reported EENTM: Reports: No Symptoms Reported Respiratory: Reports: No Symptoms Reported Cardiac: Reports: No Symptoms Reported Abdominal: Reports: No Symptoms Reported Genitourinary Symptoms: Reports: No Symptoms Reported - Vitals Vitals: Last Vital Signs Temp 36.7 C 04/28/20 08:21 Pulse 99 04/28/20 08:23 Resp 18 04/28/20 08:21 BP 141/86 H 04/28/20 08:23 Pulse Ox 98 04/28/20 08:21 - Exam Constitutional: Present: Alert, Oriented x3, No distress Neck: Present: non-tender, supple Respiratory: Present: lungs clear, normal breath sounds Cardiovascular/Chest: Present: regular rate, rhythm, no murmur Abdomen: Present: Normal bowel sounds, soft Appearance: Present: appropriate appearance, appropriate insight Eye contact: Present: cooperative Thoughts: Present: normal thought pattern Assessment/Plan Plan Narrative: Patient is stable, awaiting placement. Vitals signs wnl. No new labs recently. Continue current tx plan. Nurse to call with questions or concerns. - Problems/Diagnosis (1) Alcohol abuse Problem: Chronic (2) Benign essential HTN Problem: Chronic (3) Alcohol withdrawal syndrome with complication Problem: Resolved (4) Altered mental status Problem: Resolved Qualifiers: Altered mental status type: disorientation Qualified Code(s): R41.0 - Disorientation, unspecified (5) Korsakoff psychosis Problem: Acute (6) Metabolic encephalopathy Problem: Resolved (7) VDRL positive Problem: Acute
[2020-04-28] MEDS: ENOXAPARIN SODIUM 40 MG/0.4 ML SYRG SC SCH (14:37)
[2020-04-28] MEDS: NICOTINE 21 MG PATC TD SCH (18:20)
[2020-04-28] MEDS: LORazepam 1 MG TABLET PO SCH (20:12)
[2020-04-29] MEDS: MULTIVITAMINS 1 CAP CAPSULE PO SCH (09:15)
[2020-04-29] MEDS: MAGNESIUM OXIDE 400 MG TABLET PO SCH (09:15)
[2020-04-29] MEDS: FOLIC ACID 1 MG TABLET PO SCH (09:15)
[2020-04-29] MEDS: ATENOLOL 25 MG TABLET PO SCH (09:15)
[2020-04-29] MEDS: THIAMINE HCL 100 MG TABLET PO SCH ×2 (09:16→20:06)
[2020-04-29] MEDS: TOPIRAMATE 50 MG TABLET PO SCH ×2 (09:16→20:06)
[2020-04-29] MEDS: VITAMIN B COMP W-C 1 TAB TABLET PO SCH (09:16)
[2020-04-29] MEDS: CYANOCOBALAMIN 1,000 MCG TABLET PO SCH (09:16)
[2020-04-29] MEDS: LORazepam 1 MG TABLET PO PRN ×2 (10:12→23:09)
[2020-04-29] MEDS: ENOXAPARIN SODIUM 40 MG/0.4 ML SYRG SC SCH (14:36)
[2020-04-29] MEDS: NICOTINE 21 MG PATC TD SCH (18:11)
[2020-04-29] MEDS: LORazepam 1 MG TABLET PO SCH (20:06)
--- NOTE | 2020-04-29 22:45 | PN ---
Subjective - Date and Time Seen Date: 04/29/20 Time: 10:43 Subjective Narrative: Patient status remains unchanged. He denies any symptoms. States he feels well. He has no concerns at this time and no acute events overnight. Vitals are stable. Objective - Review of Systems Generalized/Overall Review: Reports: No Symptoms Reported EENTM: Reports: No Symptoms Reported Respiratory: Reports: No Symptoms Reported Cardiac: Reports: No Symptoms Reported Abdominal: Reports: No Symptoms Reported Genitourinary Symptoms: Reports: No Symptoms Reported Musculoskeletal Complaints: Reports: No Symptoms Reported Neurological: Reports: No Symptoms Reported Skin: Reports: No Symptoms Reported Endocrine: Reports: No Symptoms Reported - Vitals Vitals: Last Vital Signs Temp 36.8 C 04/29/20 21:55 Pulse 93 04/29/20 21:55 Resp 16 04/29/20 21:55 BP 149/88 H 04/29/20 21:55 Pulse Ox 100 04/29/20 21:55 - Exam Constitutional: Present: Alert, Oriented x3, No distress ENT Exam: Present: hearing grossly normal Neck: Present: non-tender, supple Respiratory: Present: lungs clear, normal breath sounds Cardiovascular/Chest: Present: regular rate, rhythm, no murmur Appearance: Present: appropriate insight Eye contact: Present: good eye contact Thoughts: Present: normal mood /affect Assessment/Plan Plan Narrative: Awaiting placement, no concerns at this time. Continue current tx plan. - Problems/Diagnosis (1) Alcohol abuse Problem: Chronic (2) Benign essential HTN Problem: Chronic (3) Alcohol withdrawal syndrome with complication Problem: Resolved (4) Altered mental status Problem: Resolved Qualifiers: Altered mental status type: disorientation Qualified Code(s): R41.0 - Disorientation, unspecified (5) Korsakoff psychosis Problem: Acute (6) Metabolic encephalopathy Problem: Resolved (7) VDRL positive Problem: Acute
[2020-04-30] MEDS: CYANOCOBALAMIN 1,000 MCG TABLET PO SCH (09:25)
[2020-04-30] MEDS: FOLIC ACID 1 MG TABLET PO SCH (09:25)
[2020-04-30] MEDS: MULTIVITAMINS 1 CAP CAPSULE PO SCH (09:25)
[2020-04-30] MEDS: VITAMIN B COMP W-C 1 TAB TABLET PO SCH (09:25)
[2020-04-30] MEDS: MAGNESIUM OXIDE 400 MG TABLET PO SCH (09:25)
[2020-04-30] MEDS: ATENOLOL 25 MG TABLET PO SCH (09:26)
[2020-04-30] MEDS: TOPIRAMATE 50 MG TABLET PO SCH ×2 (09:26→21:15)
[2020-04-30] MEDS: THIAMINE HCL 100 MG TABLET PO SCH ×2 (09:26→21:14)
--- NOTE | 2020-04-30 12:24 | PN ---
Subjective - Date and Time Seen Date: 04/30/20 Time: 12:00 Subjective Narrative: Clinically stable. 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 Treponemal antibodies and HIV negative. He most likely has a false positive VDRL. Case management is hopeful today that there may be a way to find placement for him, we discussed this, and we will see if we can work it out. Objective - Review of Systems Generalized/Overall Review: Reports: No Symptoms Reported - no change. poor historian. - Vitals Vitals: Last Vital Signs Temp 37.1 C 04/30/20 10:50 Pulse 88 04/30/20 10:50 Resp 16 04/30/20 10:50 BP 138/93 H 04/30/20 10:50 Pulse Ox 100 04/30/20 10:50 - Exam Exam Narrative: BPs generally better. will continue to monitor. Constitutional: Present: Alert, Cooperative, Well developed, No distress - exam no change.. Absent: Oriented x3 Assessment/Plan - Problems/Diagnosis (1) Intellectual disability Problem: Chronic Narrative: due to alcohol damage, leading to Korsakoff's, at the least chronic, at the worst, permanent. (2) VDRL positive Problem: Resolved Narrative: treponemal antibodies and HIV negative. therefor, most likely a false positive. (3) Korsakoff psychosis Problem: Acute (4) Urinary tract infection Problem: Resolved Qualifiers: Urinary tract infection type: acute cystitis Hematuria presence: without hematuria Qualified Code(s): N30.00 - Acute cystitis without hematuria (5) Alcohol abuse Problem: Chronic (6) Benign essential HTN Problem: Chronic (7) Tobacco abuse Problem: Chronic (8) Metabolic encephalopathy Problem: Resolved
[2020-04-30] MEDS: ENOXAPARIN SODIUM 40 MG/0.4 ML SYRG SC SCH (14:19)
[2020-04-30] MEDS: LORazepam 1 MG TABLET PO PRN (14:19)
[2020-04-30] MEDS: LORazepam 1 MG TABLET PO SCH (21:14)
[2020-04-30] MEDS: NICOTINE 21 MG PATC TD SCH (21:15)
[2020-05-01] MEDS: FOLIC ACID 1 MG TABLET PO SCH (09:21)
[2020-05-01] MEDS: ATENOLOL 25 MG TABLET PO SCH (09:21)
[2020-05-01] MEDS: MAGNESIUM OXIDE 400 MG TABLET PO SCH (09:21)
[2020-05-01] MEDS: MULTIVITAMINS 1 CAP CAPSULE PO SCH (09:21)
[2020-05-01] MEDS: CYANOCOBALAMIN 1,000 MCG TABLET PO SCH (09:22)
[2020-05-01] MEDS: TOPIRAMATE 50 MG TABLET PO SCH ×2 (09:22→20:15)
[2020-05-01] MEDS: VITAMIN B COMP W-C 1 TAB TABLET PO SCH (09:22)
[2020-05-01] MEDS: LORazepam 1 MG TABLET PO PRN ×2 (09:22→22:24)
[2020-05-01] MEDS: THIAMINE HCL 100 MG TABLET PO SCH ×2 (09:22→20:17)
--- NOTE | 2020-05-01 11:47 | PN ---
Subjective - Date and Time Seen Date: 05/01/20 Time: 11:35 Subjective Narrative: BP now well controlled. Otherwise, no change. Objective - Review of Systems Generalized/Overall Review: Reports: No Symptoms Reported - poor historian. no change. - Vitals Vitals: Last Vital Signs Temp 37.1 C 05/01/20 07:37 Pulse 77 05/01/20 09:21 Resp 16 05/01/20 07:37 BP 117/65 05/01/20 09:21 Pulse Ox 98 05/01/20 07:37 - Exam Exam Narrative: coloring and doing 6th grade level games on the computer with staff help. no change. Assessment/Plan - Problems/Diagnosis (1) Intellectual disability Problem: Chronic Narrative: stable. awaiting placement. (2) VDRL positive Problem: Resolved (3) Korsakoff psychosis Problem: Acute (4) Urinary tract infection Problem: Resolved Qualifiers: Urinary tract infection type: acute cystitis Hematuria presence: without hematuria Qualified Code(s): N30.00 - Acute cystitis without hematuria (5) Alcohol abuse Problem: Chronic (6) Benign essential HTN Problem: Chronic (7) Tobacco abuse Problem: Chronic (8) Metabolic encephalopathy Problem: Resolved
[2020-05-01] MEDS: ENOXAPARIN SODIUM 40 MG/0.4 ML SYRG SC SCH (14:15)
[2020-05-01] MEDS: LORazepam 1 MG TABLET PO SCH (20:13)
[2020-05-01] MEDS: NICOTINE 21 MG PATC TD SCH (20:13)
--- NOTE | 2020-05-02 07:03 | PN ---
Subjective - Date and Time Seen Date: 05/02/20 Time: 06:45 Subjective Narrative: Occasional elevated BPs, but most are well controlled. No change in condition. Objective Objective Narrative: Mr. Kc is stable, pleasant, but confused. no change. - Vitals Vitals: Last Vital Signs Temp 36.2 C 05/02/20 02:00 Pulse 75 05/02/20 02:00 Resp 16 05/02/20 02:00 BP 109/56 05/02/20 02:00 Pulse Ox 100 05/02/20 02:00 - Exam Exam Narrative: no change in exam Constitutional: Present: Alert, Cooperative. Absent: Oriented x3 Assessment/Plan Plan Narrative: the only acute issue at present is placement. - Problems/Diagnosis (1) Intellectual disability Problem: Chronic (2) VDRL positive Problem: Resolved (3) Korsakoff psychosis Problem: Acute (4) Urinary tract infection Problem: Resolved Qualifiers: Urinary tract infection type: acute cystitis Hematuria presence: without hematuria Qualified Code(s): N30.00 - Acute cystitis without hematuria (5) Alcohol abuse Problem: Chronic (6) Benign essential HTN Problem: Chronic (7) Tobacco abuse Problem: Chronic (8) Metabolic encephalopathy Problem: Resolved
[2020-05-02] MEDS: VITAMIN B COMP W-C 1 TAB TABLET PO SCH (08:50)
[2020-05-02] MEDS: TOPIRAMATE 50 MG TABLET PO SCH ×2 (08:50→20:33)
[2020-05-02] MEDS: FOLIC ACID 1 MG TABLET PO SCH (08:50)
[2020-05-02] MEDS: MAGNESIUM OXIDE 400 MG TABLET PO SCH (08:50)
[2020-05-02] MEDS: MULTIVITAMINS 1 CAP CAPSULE PO SCH (08:50)
[2020-05-02] MEDS: CYANOCOBALAMIN 1,000 MCG TABLET PO SCH (08:50)
[2020-05-02] MEDS: ATENOLOL 25 MG TABLET PO SCH (09:00)
[2020-05-02] MEDS: THIAMINE HCL 100 MG TABLET PO SCH ×2 (09:36→20:34)
[2020-05-02] MEDS: ENOXAPARIN SODIUM 40 MG/0.4 ML SYRG SC SCH (15:57)
[2020-05-02] MEDS: NICOTINE 21 MG PATC TD SCH (20:30)
[2020-05-02] MEDS: LORazepam 1 MG TABLET PO SCH (20:33)
[2020-05-03] MEDS: LORazepam 1 MG TABLET PO PRN ×3 (01:33→14:40)
[2020-05-03] MEDS: MAGNESIUM OXIDE 400 MG TABLET PO SCH (08:04)
[2020-05-03] MEDS: THIAMINE HCL 100 MG TABLET PO SCH (08:04)
[2020-05-03] MEDS: FOLIC ACID 1 MG TABLET PO SCH (08:04)
[2020-05-03] MEDS: CYANOCOBALAMIN 1,000 MCG TABLET PO SCH (08:04)
[2020-05-03] MEDS: TOPIRAMATE 50 MG TABLET PO SCH (08:04)
[2020-05-03] MEDS: ATENOLOL 25 MG TABLET PO SCH (08:04)
[2020-05-03] MEDS: MULTIVITAMINS 1 CAP CAPSULE PO SCH (08:04)
[2020-05-03] MEDS: VITAMIN B COMP W-C 1 TAB TABLET PO SCH (08:04)
--- NOTE | 2020-05-03 14:39 | DS ---
(1) Intellectual disability Diagnosis(s): There is a very poor prognosis for his intellectual disability due to Korsakoff's. Problem: Ruled-out (2) Korsakoff psychosis Problem: Acute (3) VDRL positive Problem: Resolved (4) Urinary tract infection Problem: Resolved Qualifiers: Urinary tract infection type: acute cystitis Hematuria presence: without hematuria Qualified Code(s): N30.00 - Acute cystitis without hematuria (5) Alcohol abuse Problem: Chronic (6) Benign essential HTN Problem: Chronic (7) Tobacco abuse Problem: Chronic (8) Metabolic encephalopathy Problem: Resolved Date of Discharge:: 05/03/20 Hospital Course: I, neurology and psych all have seen him this admission agree he has Korsakoff's psychosis and is incompetent to make his own decisions. at issue has placement. he is unable to be on his own. insurance advises he may no longer remain in the hospital. his mother agrees he may now live with her. it is understood she will obtain POA for medical and all personal affairs. Procedures Performed: none Results and Findings: Lab Pending Results 04/13/20 15:32: Urine Color Dark yellow, Urine Appearance Slightly cloudy, Urine pH 5.5, Ur Specific [place] 1.025, Urine Protein Negative, Urine Glucose (UA) Negative, Urine Ketones Negative, Urine Blood 5 H, Urine Nitrate Positive H, Urine Bilirubin 1 H, Urine Ictotest Positive H, Urine Urobilinogen Normal, Ur Leukocyte Esterase 100 H, Urine RBC Trace, Urine WBC 25-50 H, Ur Epithelial Cells 5-10 H, Urine Bacteria 4+ H, Hyaline Casts 0-5 H, Urine Culture Comments Culture to follow 04/13/20 15:32: Urine Opiates Screen Negative, Barbiturate Screen Negative, Ur Phencyclidine Scrn Negative, Urine Amphetamine Negative, U Benzodiazepines Scrn Negative, Urine Cocaine Screen Negative, Urine Marijuana (THC) Negative 04/13/20 15:40: WBC 8.6, RBC 4.46 L, Hgb 13.5, Hct 39.2 L, MCV 87.9, MCH 30.3, MCHC 34.4, RDW 12.7, Plt Count 189, MPV 10.1, Immature Gran % (Auto) 0.50 H, Immature Gran # (Auto) 0.04 H, Neutrophils % 71.8, Lymphocytes % 19.7 L, Monocytes % 7.4, Eosinophils % 0.1, Basophils % 0.5, Nucleated RBC % 0.0, Neutrophils # 6.2 H, Lymphocytes # 1.70, Monocytes # 0.6, Eosinophils # 0.0, Absolute Basophils 0.0 04/13/20 15:40: Sodium 130 L, Plasma Sodium 130, Potassium 4.2, Chloride 93 L, Carbon Dioxide 22.1 L, Anion Gap 19.1 H, BUN 9 D, Creatinine 0.97, Est GFR (Non-Af Amer) 87, BUN/Creatinine Ratio 9.3, Random Glucose 116 H, Calcium 9.6, Calcium Adj for Albumin 9.7, Total Bilirubin 0.8, AST 46, ALT 62, Alkaline Phosphatase 215 H, Total Protein 8.1, Albumin 3.5, Salicylates 7.8, Acetaminophen Less than 0.2 L, Ethyl Alcohol Less than 3.0 04/13/20 15:40: Lactic Acid, Venous 1.7 04/18/20 06:15: Sodium 135, Plasma Sodium 135, Potassium 5.2 H D, Chloride 102, Carbon Dioxide 24.4, Anion Gap 13.8, BUN 13, Creatinine 1.01, Est GFR (Non-Af Amer) 83, BUN/Creatinine Ratio 12.9, Random Glucose 130 H, Calcium 9.6 04/20/20 06:25: Sodium 139, Plasma Sodium 139, Potassium 4.1 D, Chloride 107 H, Carbon Dioxide 22.2 L, Anion Gap 13.9 H, BUN 18, Creatinine 0.93, Est GFR (Non- Af Amer) 91, BUN/Creatinine Ratio 19.4, Random Glucose 100, Calcium 9.0 04/20/20 06:25: VDRL Reactive H 04/26/20 07:11: T.pallidum Ab (FTA-ABS) Non-reactive 04/26/20 07:11: HIV 1&2 Ag/Ab, 4th Gen Non-reactive Discharge Location: Home - his mother's home. in the strictest sense, his mother's care. not self-care. Disposition: Home self-care Condition: Stable Discharge Activity: Activity as tolerated Discharge Diet: General/regular food, Other - strictly avoid any and all alcohol. Consultation Done:: neurology and psych Additional Patient Instructions (free text): Follow up with [facility] in [place] this may not return to service inspector to be of benefit, given his current intellectual disability. please call if you have problems or questions. follow up in the office with Dr. Reyes in 1 week. Complete Home Medications List: Complete Home Medication List: Atenolol [Tenormin] 25 mg PO DAILY #30 tablet 05/03/20 Cyanocobalamin [Vitamin B-12] 1,000 mcg PO DAILY #30 tablet 05/03/20 Folic Acid 1 mg PO DAILY #30 tablet 05/03/20 Folic Acid/B Cplx/C/Selen/Zinc [Dialyvite 3,000 Tablet] 1 each PO DAILY #30 tablet 05/03/20 LORazepam [Ativan] 1 mg PO HS #30 tab 05/03/20 Magnesium Oxide [Mag-Ox 400] 400 mg PO DAILY #30 tablet 05/03/20 Multivitamins [Multivitamin Fabiola] 1 cap PO DAILY #30 capsule 05/03/20 Nicotine [Nicoderm] 21 mg TD Q24H #30 patch.td24 05/03/20 Thiamine HCl [Vitamin B-1] 100 mg PO DAILY #30 tablet 05/03/20 Topiramate [Topamax] 50 mg PO BID #60 tab 05/03/20 Forms: Patient Portal Registration
[2020-05-03] MEDS: ENOXAPARIN SODIUM 40 MG/0.4 ML SYRG SC SCH (14:40)
[2020-05-03 15:53] VITALS: BP 137/78
== END 2020-05-03 15:38 | disposition home or self-care (01) | DRG 896 ==
LOC: ER 15:11 → MS 18:26 → INTOOBSV 18:26 → OBSVTOIN 18:26 → MS 20:45
PROVIDERS: ADMIT Family Medicine; ATTEND Allergy & Immunology
DX: Z72.0 Tobacco use; B96.20 Unspecified Escherichia coli [E. coli] as the cause of diseases classified elsewhere; F10.139 Alcohol abuse with withdrawal, unspecified; F78 Other intellectual disabilities; I10 Essential (primary) hypertension; N30.00 Acute cystitis without hematuria; G93.41 Metabolic encephalopathy